=== PATIENT | female | born 1960 | race Hispanic/Latino ===

== ENCOUNTER 2016-12-08 16:48 | Inpatient (IN) | payer OTHER ==
[2016-12-08 17:04] VITALS: BMI 14.6
[2016-12-08 17:53] LABS: BASO # 0.1 K/uL (0.0-0.2); EOS # 0.1 K/uL (0.0-0.7); EOS % 1.5 % (0.0-4.0); HEMATOCRIT 39.5 % (34.0-47.0); LYMPH # 2.8 K/uL (1.0-4.3); LYMPH % 34.5 % (20.0-40.0); MEAN CELL VOLUME 90.6 fL (81.0-99.0); MEAN CORPUSCULAR HEMOGLOBIN 29.6 pg (27.0-31.0); MEAN CORPUSCULAR HGB CONC 32.7 g/dL (33.0-37.0); MEAN PLATELET VOLUME 8.1 fL (7.2-11.7); MONO # 0.3 K/uL (0.0-0.8); MONO % 4.3 % (0.0-10.0)
[2016-12-08 18:03] LABS: CHLORIDE 99 mmol/L (98-107)
[2016-12-08 18:04] LABS: POTASSIUM 3.9 mmol/L (3.6-5.2); SODIUM 139 mmol/L (132-148)
[2016-12-08 18:06] LABS: ALB/GLOB RATIO 1.6 (1.0-2.1); ALKALINE PHOSPHATASE 58 U/L (38-126); AST/SGOT 22 U/L (14-36); BILIRUBIN,TOTAL 0.4 mg/dL (0.2-1.3); BLOOD UREA NITROGEN 14 mg/dL (7-17); CARBON DIOXIDE 26 mmol/L (22-30); GFR AFRICAN-AMERICAN > 60; GLUCOSE,RANDOM 99 mg/dL (65-105); TOTAL PROTEIN 6.3 g/dL (6.3-8.3)
[2016-12-08 18:07] LABS: ALCOHOL SERUM < 10 mg/dl (0-10); ALT/SGPT 29 U/L (9-52); CALCIUM 8.6 mg/dl (8.6-10.4)
[2016-12-08 18:08] LABS: RBC URINE 2 /hpf (0-3); URINE BACTERIA OCC (<OCC); URINE BILIRUBIN NEGATIVE (NEGATIVE); URINE BLOOD NEGATIVE (NEGATIVE); URINE COLOR Yellow (YELLOW); URINE GLUCOSE (UA) NORMAL (Normal); URINE KETONE NEGATIVE (NEGATIVE); URINE LEUKOCYTE ESTERASE 1+ Leu/uL (Negative); URINE PROTEIN NEGATIVE (NEGATIVE); WBC URINE 6 /hpf (0-5)
--- NOTE | 2016-12-08 18:19 | C.PDOC ---
History Of Present Illness Patient presents to ED for detox from heroin, cocaine and alcohol. Cocaine was last used yesterday, and alcohol last used two days ago, and heroin was used several hours ago. Patient has no current physical complaints, and denies SI/ HI. Time Seen by Provider: 12/08/16 17:22 Chief Complaint (Nursing): Substance Abuse History Per: Patient History/Exam Limitations: no limitations Onset/Duration Of Symptoms: Persistent Current Symptoms Are (Timing): Still Present Modifying Factor(s): Alcohol, Narcotics, Cocaine Severity: Moderate Past Medical History Reviewed: Historical Data, Nursing Documentation, Vital Signs Vital Signs: Last Vital Signs Temp 98.2 F 12/12/16 09:53 Pulse 66 12/12/16 09:53 Resp 16 12/12/16 09:53 BP 118/65 12/12/16 09:53 Pulse Ox 99 12/12/16 09:53 - Medical History PMH: COPD, Emphysema Family History: States: No Known Family Hx - Social History Hx Alcohol Use: Yes Hx Substance Use: Yes - Immunization History Hx Tetanus Toxoid Vaccination: No Hx Influenza Vaccination: No Hx Pneumococcal Vaccination: No Review Of Systems Except As Marked, All Systems Reviewed And Found Negative. Constitutional: Negative for: Fever, Chills Cardiovascular: Negative for: Chest Pain, Palpitations Respiratory: Negative for: Shortness of Breath Gastrointestinal: Negative for: Nausea, Vomiting, Abdominal Pain, Diarrhea Psych: Positive for: Other (alcohol/heroin/cocaine dependence ). Negative for: Suicidal ideation Physical Exam - Physical Exam Appears: Well, Non-toxic, No Acute Distress Skin: Normal Color, Warm, Dry Oral Mucosa: Moist Cardiovascular: Rhythm Regular Respiratory: Normal Breath Sounds, No Rales, No Rhonchi, No Wheezing Gastrointestinal/Abdominal: Normal Exam, Bowel Sounds, Soft, No Tenderness Extremity: Normal ROM, No Pedal Edema, No Calf Tenderness Extremity: Bilateral: Atraumatic, Normal Color And Temperature, Normal ROM Neurological/Psych: Oriented x3 ED Course And Treatment - Laboratory Results Result Diagrams: 12/08/16 17:49 12/08/16 17:49 O2 Sat by Pulse Oximetry: 97 (RA) Pulse Ox Interpretation: Normal Progress Note: Blood work, UA, UDS ordered and reviewed. 6:30pm- Patient medically cleared - pending crisis. 6:45pm- Patient admits to mild dysuria - will order Ucx and treat with antibiotics. Recommend Ciprofloxacin 500mg PO BID x 7 days. Patient medically cleared - accepted for detox admission by Dr. Lakhani. Disposition Counseled Patient/Family Regarding: Studies Performed, Diagnosis, Need For Followup, Rx Given - Disposition Disposition: HOSPITALIZED Disposition Time: 18:45 Condition: STABLE - Clinical Impression Clinical Impression: Heroin dependence, Alcohol dependence, UTI (urinary tract infection) Decision To Admit - Pt Status Changed To: Hospital Disposition Of: Inpatient - Admit Certification Admit to Inpatient:: After my assessment, the patient will require hospitalization for at least two midnights. This is because of the severity of symptoms shown, intensity of services needed, and/or the medical risk in this patient being treated as an outpatient. - InPatient: Physician Admission Certification: I certify that this patient requires 2 or more midnights of care for the following reason:: see notes - . Bed Request Type: Detox Admitting Physician: Laurita Lakhani Patient Diagnosis: Heroin dependence, Alcohol dependence, UTI (urinary tract infection)
--- NOTE | 2016-12-08 20:04 | PCM.BM ---
Treatment Plan Problems - Problems identified on initial assessmt potential for alcohol withdrawal Date Initiated: 12/08/16 Time Initiated: 20:03 Assessment reference: NA Status: Active potential for opiates withdrawal Date Initiated: 12/08/16 Time Initiated: 20:03 Assessment reference: NA Status: Active Treatment assets and liabiliti Patient Assests: adapts well, cooperative, motivated, ADL independent, cognitively intact Patient Liabilities: live alone, poor support system, substance abuse, medical problems, other (homelessness) - Milieu Protocol Maintain good personal hygiene: daily Encourage regular showers, daily Remind patient to perform daily oral care, daily Assist patient to perform ADL's Conduct patient checks and document Observation sheet: Q15 minutes Maintain personal safety: every shift Educate patient to report safety concerns to staff, every shift Monitor environment for contraband/sharps Medication safety: Monitor for expected outcome, potential side effects: every shift, Assess barriers to learning: every shift, Assess readiness for medication education: every shift
[2016-12-09] MEDS ORDERED: Buprenorphine Hydrochloride 2 mg SL ONE ×2 (10:25→11:30)
[2016-12-09] MEDS: Albuterol HFA 90 mcg/actuation (8 g) INH PRN ×2 (11:57→21:23)
--- NOTE | 2016-12-09 21:16 | PCM.PSYCH ---
Initial Psychiatric Evaluation - Initial Psychiatric Evaluation Type of Admission: Voluntary Legal Status: Capacity Chief Complaint (in patient's own words): I have opioid withdrawal History of Present Illness and Precipitating Events: This is a 56 year old female admitted for heroin detox. Pt states she used 3 bags of heroin intranasally, and last use was "few hours before coming to ED," typically using 10-12 bags or "sometimes 2 bundles," on and off since age 13. Pt reported that she is feeling restless, and has opioid withdrawal symptoms such as yawing, bidy aches, nausea, headache, feeling cold turkey, runny nose, abdominal pain,etc, but diarrhea. She reported she had multiple detox and 2 rehab. She reported she had multiple relapse. However, she is determined that this time she will continue her treatment after d/c and will stay sober. Pt also reports frequently drinking alcohol, last drank a "nip of Scotch" 2 days ago, usually consumes a "small pint." Started during her teen year. Pt also reporting regular intranasal cocaine use, last use last night, with "two 20's" intranasally, which is her average daily use. Pt last [place] was [place] [facility] Pt denies S/I; H/I; A/V/T hallucinations. Pt denies any psychiatric history or treatment. Pt states she is diagnosed with emphysema, but is not on medication to treat it. Pt states she has lost 35-40 lbs in the last 6 months as a result of drug use and stress of unstable housing. Current Medications: Active Medications Generic Name Dose Route Start Last Admin Trade Name Freq PRN Reason Stop Dose Admin Albuterol 1 puff 12/09/16 11:30 12/09/16 11:57 Ventolin Hfa 90 Mcg/Actuation (8 G) INH 1 inhaler RQ4 PRN Administration Shortness of Breath Ciprofloxacin 500 mg 12/09/16 10:00 12/09/16 17:09 Cipro PO 500 mg BID DAVIDE Administration Clonidine HCl 0.1 mg 12/08/16 18:39 Catapres PO Q8 PRN COWS Score More or Equal to 5 Dicyclomine HCl 10 mg 12/08/16 18:39 Bentyl PO Q6 PRN Muscle spasm Hydroxyzine HCl 25 mg 12/08/16 18:39 12/09/16 17:08 Atarax PO 25 mg Q6 PRN Administration Anxiety Ibuprofen 400 mg 12/08/16 18:43 Motrin Tab PO Q8H PRN Pain, Mild (1-3) Loperamide HCl 2 mg 12/08/16 18:39 Imodium PO Q8 PRN Diarrhea Lorazepam 2 mg 12/08/16 18:39 12/08/16 22:16 Ativan PO 2 mg Q8H PRN Administration Severe Agitation Ondansetron HCl 4 mg 12/08/16 18:39 Zofran Tab PO Q8 PRN Nausea/Vomiting Trazodone HCl 50 mg 12/08/16 18:44 12/08/16 22:17 Desyrel PO 50 mg HS PRN Administration Insomnia Past Psychiatric History - Past Psychiatric History Previous Treatment History: Inpatient Prior Psychiatric Treatment: multiple admission for detox [place] [facility] History of Abuse: denied History of ETOH/Drug Use: please see HPI History of Family Illness: denied Pertinent Medical Hx (Current Medical&Sleep Prob, Allergies): Allergies Allergy/AdvReac Type Severity Reaction Status Date / Time No Known Allergies Allergy Verified 12/08/16 17:03 No Known Home Med 12/08/16 Review of Systems - Review of Systems Systems not reviewed;Unavailable: Acuity of Condition - Constitutional Constitutional: Chills, Sweats, Weakness, Malaise, Other (body aches, nausea, yawing, ) Mental Status Examination - Personal Presentation Personal Presentation: Looks stated age, Dressed appropriate to season - Affect Affect: Constricted - Motor Activity Motor Activity: Psychomotor Agitation - Reliability in Providing Information Reliability in Providing Information: Fair - Speech Speech: Organized, Coherent - Mood Mood: Anxious - Formal Thought Process Formal Thought Process: No Impairment - Hallucinations/Delusions Hallucinations: Other (denied) Delusions: Other (denied) - Obsessions/Compulsions Obsessions: No Compulsions: No - Cognitive Functions Orientation: Person, Place, Situation, Time Sensorium: Alert Attention/Concentration: Attentive Abstract Thinking: [place] Estimate of Intelligence: Average Judgement: Intact, as evidence by: Good judgement, Intact, as evidence by: Insight regarding need for hospitalization Memory: Recent intact, as evidence by: Ability to recall events of the day - Risk Risk: Withdrawal - Strength & Assets Inventory Strength & Assets Inventory: Intelligence, Skills, Spiritual affiliations, Cooperative - Limitations Limitations: Other (chronic substance abuse) DSM 5 DX - DSM 5 DSM 5 Diagnosis: Opioid use disorder, dependence oipiod withdrawal alcohol use disorder - Recommended/Plan of Treatment Treatment Recommendations and Plan of Treatment: Subutex detox As needed medications Gabapentin for augmentation Attend groups and activities Supportive therapy and psychoeducation NE for abstinence CBT for relapse prevention Encourage MAT Refer to rehab or IOP Attend self-help groups as well Projected ELOS: 3-4 days Prognosis: fair with meds Discharge Plan and Discharge Criteria: as per unit SW and completion of detox - Smoking Cessation Smoking Cessation Initiated: Yes
[2016-12-10] MEDS ORDERED: Buprenorphine Hydrochloride 2 mg SL ONE (08:53)
[2016-12-10] MEDS: Buprenorphine Hydrochloride 2 mg SL SCH (11:04)
--- NOTE | 2016-12-10 19:48 | PCM.PYCHPN ---
Psychiatric Progress Note - Psychiatric Progress Note Patient seen today, length of contact: 16 minutes Patient Chief Complaint: "I'm feeling better' Problems Identified/Issues Discussed: The pt is seen, chart reviewed, case discussed with staff. Support given, CBT and OK used briefly No new symptoms reported, improving slowly and needs more time No SEs from medications, risks, benefits, alternative choices were discussed. After care discussed DSM 5 Symptoms Update: Opioid use d/o, severe, dependence Opioid withdrawal Alcohol use d/o Medication Change: Yes (Subutex taper) Medical Record Reviewed: Yes Mental Status Examination - Cognitive Function Orientation: Person, Place, Situation, Time Memory: Intact Attention: WNL Concentration: WNL Association: WN Fund of Knowledge: [facility] Decription of patient's judgement and insights: Improving/Improving - Mood Mood: Anxious, Other ("I'm feeling better") - Affect Affect: Constricted - Speech Speech: Appropriate - Formal Thought Process Formal Thought Process: No Impairment Psychotic Thoughts and Behaviors: denied - Suicidal Ideation Suicidal Ideation: No - Homicidal Ideation Homicidal Ideation: No Goal/Treatment Plan - Goal/Treatment Plan Need for Continued Stay: Discharge may exacerbated symptoms Progress Toward Problem(s) and Goals/Treatment Plan: Subutex detox As needed medications Gabapentin for augmentation Ativan for eoh withdrawal Cipro for UTI Attend groups and activities Supportive therapy and psychoeducation [place] for abstinence CBT for relapse prevention Encourage MAT Refer to rehab or IOP Attend self-help groups as well Estimated Date of D/C: 12/12/16 - Smoking Cessation Smoking Cessation Initiated: Yes
[2016-12-11] MEDS: Albuterol HFA 90 mcg/actuation (8 g) INH PRN (06:30)
[2016-12-11] MEDS: Buprenorphine Hydrochloride 2 mg SL SCH (09:27)
[2016-12-11 14:19] LABS: FREE T4 0.71 ng/dL (0.78-2.19)
[2016-12-11 14:33] LABS: THYROID STIMULATING HORMONE 2.46 mIU/L (0.46-4.68)
--- NOTE | 2016-12-11 15:12 | PCM.PYCHPN ---
Psychiatric Progress Note - Psychiatric Progress Note Patient seen today, length of contact: 15 min Patient Chief Complaint: "It's going really good" Problems Identified/Issues Discussed: Pt is seen, chart reviewed, case discussed with staff. Pt is compliant with medications and reports no side effects. Pt currently does not report of any withdrawal symptoms, stating that her medications are helping. Symptoms are improving but she needs more time to stabilize. Support and psychoeducation given, CBT and ID used briefly. After care discussed. Pt states that she does not currently have a plan for after discharge. She is not interested in the [facility] because she "heard a lot of bad things about it" and hadn't considered inpatient rehab. She is encouraged to strongly consider it. At this time she does not have any interest in MAT. Will work with counselors today. Medication Change: Yes (Detox meds change daily) Medical Record Reviewed: Yes Mental Status Examination - Cognitive Function Orientation: Person, Place, Situation, Time Memory: Intact Attention: WNL Concentration: WNL Association: WNL Fund of Knowledge: WNL - Mood Mood: Neutral - Affect Affect: Constricted - Speech Speech: Appropriate - Formal Thought Process Formal Thought Process: No Impairment - Suicidal Ideation Suicidal Ideation: No - Homicidal Ideation Homicidal Ideation: No Goal/Treatment Plan - Goal/Treatment Plan Need for Continued Stay: Discharge may exacerbated symptoms Progress Toward Problem(s) and Goals/Treatment Plan: Subutex detox for opioid withdrawal Continue other medications as prescribed Attend groups and activities Attend self-help groups as well Supportive therapy and psychoeducation ID for abstinence CBT for relapse prevention Encourage MAT Refer to after care
--- NOTE | 2016-12-12 08:41 | PCM.PYCHDC ---
Mental Status Examination - Mental Status Examination Orientation: Person, Place, Situation, Time Memory: Intact Mood: Anxious Affect: Broad Speech: Appropriate Attention: WNL Concentration: WNL Association: WNL Fund of Knowledge: WNL Formal Thought Process: No Impairment Suicidal Ideation: No Current Homicidal Ideation?: No Discharge Summary - Discharge Note Reason for Hospitalization: Desire for heroin and alcohol detox Psychiatric History (includes Medical, Family, Personal Hx): Multiple detoxes, 2 stays in rehab Laboratory Data: Abnormal Lab Results 12/11/16 12/11/16 12/11/16 13:37 13:37 13:37 25-OH Vitamin D Total 30.9 Free T4 0.71 L TSH 3rd Generation 2.46 Hepatitis C Antibody Reactive Consultations:: List each consultation separately and include: 1. Reason for request. 2. Findings. 3. Follow-up Summary of Hospital Course include:: 1. Description of specific treatment plan utilized for patients during their course of treatmen. 2. Summarize the time- course for resolution of acute symptoms and/or regressed behaviors. 3. Describe issues identified and worked on during hospitalization. 4. Describe medication utilized. 5. Describe medical problems identified and treated. 6. Reassessment of suicide risk Summary of Hospital Course: Pt was admitted and started on treatment with psychotherapy, support, psychoeducation and medications. CA and CBT used. Pt attended groups and activities as well as milieu therapy. All the risks and benefits of medications were discussed and pt understood and agreed. Pt improved with the treatment provided. She currently feels well, has no complaints, and states "I'm ready to go." After care discussed. Pt reports that her boyfriend "knows some people" at [facility] and is helping her to be placed there. She is encouraged to follow through with rehab and she agrees that it will be beneficial for her to "keep busy." - Final Diagnosis (DSM 5) Condition upon Discharge: STABLE DSM 5: Opioid use disorder, severe Opioid withdrawal Alcohol use disorder Disposition: HOME/ ROUTINE Follow-up Treatment Plan: Continue below medications after discharge. Follow after care as discussed. Use relapse prevention skills. Return to ER or call 911 if suicidal, homicidal or symptoms relapse. Stay away from stress, alcohol and drugs. See primary doctor once a year. Prescriptions/Medication Reconciliation: Ciprofloxacin [Cipro] 500 mg PO BID #8 tab traZODone [Desyrel] 50 mg PO HS PRN #30 tab PRN Reason: Insomnia - Antipsychotic Medications Pt discharged on 2 or more routine antipsychotic medications: No
[2016-12-12] MEDS: Buprenorphine Hydrochloride 2 mg SL SCH (09:17)
[2016-12-12 09:56] VITALS: BP 118/65; PULSE 66; RESP 16; TEMP 98.2
[2016-12-13 08:20] VITALS: O2SAT 97
== END 2016-12-12 10:15 | disposition home or self-care (01) | DRG 744 ==
LOC: C.ER 16:48 → C.7D 18:45
PROVIDERS: ADMIT Psychiatry & Neurology Psychiatry; ATTEND Psychiatry & Neurology Psychiatry
PROC: HZ2ZZZZ Detoxification Services for Substance Abuse Treatment (ICD-10-PCS; principal; 2016-12-08)
PROC: GZ56ZZZ Individual Psychotherapy, Supportive (ICD-10-PCS; 2016-12-08)
DX: F11.23 Opioid dependence with withdrawal (principal); J44.9 Chronic obstructive pulmonary disease, unspecified; F10.10 Alcohol abuse, uncomplicated; N39.0 Urinary tract infection, site not specified; F14.90 Cocaine use, unspecified, uncomplicated